=== PATIENT | male | born 1980 | race Caucasian/White ===

== ENCOUNTER 2016-11-21 11:55 | Emergency (ER) | payer SELFPAY ==
[~2016-11-21] VITALS: Ht 182.9 cm; Wt 122.7 kg
[~2016-11-21 11:55] MED LIST: MOTRIN 800800 MG/TAB PO; NO HOME MEDICATIONS; NORCO 325 MG-51 TAB PO; NORCO 325 MG-7.1 TAB PO; PHENERGAN 25 TA25 MG PO; antibiotic
[2016-11-21 11:56] VITALS: BP 138/80; PULSE 89; TEMP 97.7
== END 2016-11-21 12:52 | disposition home or self-care (01) ==
LOC: COL.ER 11:55
DX: R10.31 Right lower quadrant pain (principal)

== ENCOUNTER 2016-12-16 15:36 | Emergency (ER) | payer SELFPAY ==
[~2016-12-16] VITALS: Ht 182.9 cm; Wt 129.1 kg
[2016-12-16 15:39] VITALS: TEMP 97.8
[2016-12-16 16:48] LABS: BASO # 0.1 (0.0-0.2); BASO % 0.8 % (0.0-2.0); EOS # 0.1 (0.0-0.7); EOS % 1.4 % (0-4.0); GRAN # 4.7 (1.4-6.5); GRAN % 60.4 % (42.2-75.2); HEMATOCRIT 44.5 % (42.0-52.0); HEMOGLOBIN 15.2 g/dl (13.5-18.0); LYMPH # 2.3 (1.2-3.4); LYMPH % 29.7 % (20.0-51.0); MEAN CELL VOLUME 90 fl (80.0-100.0); MEAN CORPUSCULAR HEMOGLOBIN 31 pg (27.0-31.0); MEAN CORPUSCULAR HGB CONC 34 g/dl (33.0-37.0); MEAN PLATELET VOLUME 9.5 fl (7.4-10.4); MONO # 0.5 (0.1-0.6); MONO % 6.8 % (1.7-9.3); PLATELET COUNT 323 K/mm3 (130-400); RED BLOOD COUNT 4.93 M/mm3 (4.20-5.60); REDCELL DISTRIBUTION WIDTH-CV 12.5 % (11.5-14.5); WHITE BLOOD COUNT 7.8 K/mm3 (4.8-10.8)
[2016-12-16] MEDS ORDERED: ULTRAM 50MG TAB50 MG PO (17:27)
[2016-12-16 17:30] LABS: PH 6 (5-8); SQUAMOUS EPITHELIAL None Seen /hpf; URINE APPEARANCE Clear; URINE BACTERIA None Seen /hpf; URINE BILIRUBIN Negative (NEGATIVE); URINE BLOOD 1+ (NEGATIVE); URINE COLOR Straw; URINE GLUCOSE Negative (NEGATIVE); URINE KETONE Negative (NEGATIVE); URINE RBC 0-2 /hpf; URINE UROBILINOGEN Negative (NEGATIVE); URINE WBC 0-2 /hpf
[2016-12-16 18:37] LABS: CHLAMYDIA/TRACH by PCR Male NOT DETECTED; Neisseria Gon by PCR Male NOT DETECTED
[2016-12-16 19:17] VITALS: BP 110/86; PULSE 80
== END 2016-12-16 19:18 | disposition home or self-care (01) ==
LOC: COL.ER 15:36
PROVIDERS: Family Medicine
DX: R10.31 Right lower quadrant pain (principal); G89.29 Other chronic pain

== ENCOUNTER 2017-07-24 14:03 | Emergency (ER) | payer SELFPAY ==
[~2017-07-24] VITALS: Ht 182.9 cm; Wt 127.3 kg
[~2017-07-24 14:03] MED LIST changes: +ULTRAM 50MG TAB50 MG PO
[2017-07-24 14:09] VITALS: BP 120/76; TEMP 98.7
[2017-07-24 15:11] LABS: INFLUENZA A NEGATIVE; INFLUENZA B NEGATIVE
[2017-07-24 16:18] VITALS: PULSE 101
== END 2017-07-24 16:18 | disposition home or self-care (01) ==
LOC: COL.ER 14:03
PROVIDERS: Nurse Practitioner
DX: J02.9 Acute pharyngitis, unspecified (principal); B34.9 Viral infection, unspecified; Z90.89 Acquired absence of other organs; Z98.890 Other specified postprocedural states
CPT/HCPCS: J7030

== ENCOUNTER 2018-09-24 18:45 | Emergency (ER) | payer SELFPAY ==
[~2018-09-24] VITALS: Ht 180.3 cm; Wt 125.9 kg
[2018-09-24 18:54] VITALS: TEMP 98.2
[2018-09-24 20:13] LABS: COLLECTION METHOD CLEAN CATCH
[2018-09-24 20:19] LABS: MUCOUS Present /lpf; PH 6 (5-8); SQUAMOUS EPITHELIAL None Seen /hpf; URINE APPEARANCE Clear; URINE BACTERIA None Seen /hpf; URINE BILIRUBIN Negative (NEGATIVE); URINE BLOOD Negative (NEGATIVE); URINE COLOR Yellow; URINE GLUCOSE Negative (NEGATIVE); URINE KETONE Negative (NEGATIVE); URINE LEUKOCYTE ESTERASE Negative (NEGATIVE); URINE NITRATE Negative (NEGATIVE); URINE PROTEIN(semi-quant) Negative (NEGATIVE); URINE RBC 0-2 /hpf; URINE UROBILINOGEN Negative (NEGATIVE)
[2018-09-24] MEDS ORDERED: DOXYCYCLINE 10100 MG PO (20:45)
[2018-09-24 21:04] VITALS: BP 97/63; PULSE 76
== END 2018-09-24 21:06 | disposition home or self-care (01) ==
LOC: COL.ER 18:45
PROVIDERS: Emergency Medicine
DX: N34.2 Other urethritis (principal)
CPT/HCPCS: J0696

== ENCOUNTER 2018-10-11 19:38 | Emergency (ER) | payer SELFPAY ==
[~2018-10-11] VITALS: Ht 180.3 cm; Wt 125.0 kg
[~2018-10-11 19:38] MED LIST changes: +DOXYCYCLINE 10100 MG PO
[2018-10-11 19:44] VITALS: BP 121/73; TEMP 97.9
[2018-10-11] MEDS ORDERED: FLAGYL500 MG PO (20:24)
[2018-10-11 21:06] LABS: COLLECTION METHOD CLEAN CATCH
[2018-10-11 21:33] VITALS: PULSE 93
[2018-10-11 21:33] LABS: MUCOUS Present /lpf; PH 5 (5-8); SQUAMOUS EPITHELIAL None Seen /hpf; URINE APPEARANCE Hazy; URINE BACTERIA Many /hpf; URINE BILIRUBIN Negative (NEGATIVE); URINE BLOOD Negative (NEGATIVE); URINE COLOR Yellow; URINE GLUCOSE Negative (NEGATIVE); URINE KETONE Trace (NEGATIVE); URINE LEUKOCYTE ESTERASE Negative (NEGATIVE); URINE NITRATE Negative (NEGATIVE); URINE PROTEIN(semi-quant) 1+ (NEGATIVE); URINE WBC 0-2 /hpf
== END 2018-10-11 21:33 | disposition home or self-care (01) ==
LOC: COL.ER 19:38
PROVIDERS: Emergency Medicine
DX: R30.0 Dysuria (principal)
CPT/HCPCS: J0696

== ENCOUNTER 2018-10-18 16:28 | Emergency (ER) | payer SELFPAY ==
[~2018-10-18] VITALS: Ht 180.3 cm; Wt 125.0 kg
[~2018-10-18 16:28] MED LIST changes: +FLAGYL500 MG PO
[2018-10-18 16:40] VITALS: BP 105/66; PULSE 84; TEMP 97.9
[2018-10-19] MEDS ORDERED: PYRIDIUM200 M1 PO (17:10)
[2018-10-19] MEDS ORDERED: CIPRO 500MG TA500 MG PO (17:10)
== END 2018-10-18 18:19 | disposition left against medical advice (07) ==
LOC: COL.ER 16:28
DX: N48.29 Other inflammatory disorders of penis (principal)

== ENCOUNTER 2018-10-19 12:38 | Emergency (ER) | payer SELFPAY ==
[~2018-10-19] VITALS: Ht 180.3 cm; Wt 125.0 kg
[2018-10-19 12:41] VITALS: TEMP 98.6
[2018-10-19 16:07] LABS: COLLECTION METHOD CLEAN CATCH
[2018-10-19 16:18] LABS: PH 6 (5-8); SQUAMOUS EPITHELIAL 0-2 /hpf; URINE APPEARANCE Clear; URINE BACTERIA None Seen /hpf; URINE BILIRUBIN Negative (NEGATIVE); URINE BLOOD 1+ (NEGATIVE); URINE COLOR Yellow; URINE GLUCOSE Negative (NEGATIVE); URINE KETONE Negative (NEGATIVE); URINE LEUKOCYTE ESTERASE Trace (NEGATIVE); URINE NITRATE Negative (NEGATIVE); URINE PROTEIN(semi-quant) Negative (NEGATIVE); URINE RBC 0-2 /hpf; URINE UROBILINOGEN Negative (NEGATIVE)
[2018-10-19] MEDS ORDERED: CIPRO 500MG TA500 MG PO (17:10)
[2018-10-19] MEDS ORDERED: PYRIDIUM200 M1 PO (17:10)
[2018-10-19 17:41] VITALS: BP 112/72; PULSE 66
== END 2018-10-19 17:41 | disposition home or self-care (01) ==
LOC: COL.ER 12:38
PROVIDERS: Emergency Medicine
DX: R30.0 Dysuria (principal); Z90.89 Acquired absence of other organs

== ENCOUNTER → 2020-09-07 | Outpatient (CLI) | payer OTHER ==
[~2020-09-07] MED LIST changes: +CIPRO 500MG TA500 MG PO; +PYRIDIUM200 M1 PO
== END ==
LOC: COL.RAD 07:51
DX: R06.02 Shortness of breath (principal)

== ENCOUNTER 2021-03-22 14:11 | Emergency (ER) | payer SELFPAY ==
[~2021-03-22] VITALS: Ht 182.9 cm; Wt 136.4 kg
[2021-03-22 14:51] VITALS: TEMP 97.9
[2021-03-22] MEDS ORDERED: ANTIVERT 25MG25 MG PO (16:48)
[2021-03-22 16:58] VITALS: BP 112/87; PULSE 89
== END 2021-03-22 16:58 | disposition home or self-care (01) ==
LOC: COL.ER 14:11
DX: R42 Dizziness and giddiness (principal); R51.9 Headache, unspecified
CPT/HCPCS: J0780; J1200; J7120

== ENCOUNTER 2021-09-19 18:42 | Emergency (ER) | payer SELFPAY ==
[~2021-09-19 18:42] MED LIST changes: +ANTIVERT 25MG25 MG PO
[2021-09-19 18:49] VITALS: TEMP 97.5
[2021-09-19 19:08] LABS: BASO # 0.1 K/mm3 (0.0-0.2); BASO % 0.6 % (0.0-2.0); EOS # 0.1 K/mm3 (0.0-0.7); EOS % 1.1 % (0.0-4.0); GRAN # 6.8 K/mm3 (1.4-6.5); GRAN % 62.5 % (42.2-75.2); HEMATOCRIT 46.1 % (42.0-52.0); HEMOGLOBIN 15.8 g/dl (13.5-18.0); LYMPH # 2.9 K/mm3 (1.2-3.4); LYMPH % 26.4 % (20.0-51.0); MEAN CELL VOLUME 92 fl (80.0-100.0); MEAN CORPUSCULAR HEMOGLOBIN 32 pg (27-31); MEAN CORPUSCULAR HGB CONC 34 g/dl (33.0-37.0); MEAN PLATELET VOLUME 9.7 fl (7.4-10.4); MONO # 0.9 K/mm3 (0.1-0.6); MONO % 8.5 % (1.7-9.3); PLATELET COUNT 379 K/mm3 (130-400); REDCELL DISTRIBUTION WIDTH-CV 13.2 % (11.5-14.5)
[2021-09-19 19:24] LABS: ALANINE AMINOTRANSFERASE 61 U/L (0-55); ALBUMIN 4.6 gm/dL (3.5-5.0); ALKALINE PHOSPHATASE 74 U/L (40-150); ANION GAP 11 mmol/L (7-16); AST,SGOT 37 U/L (5-34); BILIRUBIN,TOTAL 0.5 mg/dL (0.2-1.2); BLOOD UREA NITROGEN 16 mg/dL (9-21); CALCIUM 10.3 mg/dL (8.4-10.2); CARBON DIOXIDE 24 mmol/L (22-29); CHLORIDE 102 mmol/L (98-107); CREATINE KINASE 182 U/L (30-200); CREATININE, serum 1.24 mg/dL (0.72-1.25); GLUCOSE 90 mg/dL (70-99); POTASSIUM 4.7 mmol/L (3.5-4.5); SODIUM 137 mmol/L (136-145); TOTAL PROTEIN 8.7 gm/dL (6.2-8.1)
[2021-09-19 19:38] LABS: TROPONIN-I < 0.010 ng/mL (0.00-0.033)
[2021-09-19] MEDS ORDERED: MEDROL 4MG DOSPA4 MG PO (22:05)
[2021-09-19 22:15] VITALS: BP 134/79; PULSE 70
== END 2021-09-19 22:15 | disposition home or self-care (01) ==
LOC: COL.ER 18:42
PROVIDERS: Emergency Medicine
DX: R07.81 Pleurodynia (principal); J45.909 Unspecified asthma, uncomplicated; Z20.822 Contact with and (suspected) exposure to COVID-19
CPT/HCPCS: J7030; J7512; Q9967

== ENCOUNTER 2021-09-23 18:09 | Emergency (ER) | payer SELFPAY ==
[~2021-09-23 18:09] MED LIST changes: +MEDROL 4MG DOSPA4 MG PO
[2021-09-23 18:15] VITALS: TEMP 98.4
[2021-09-23 18:32] LABS: BASO # 0.1 K/mm3 (0.0-0.2); BASO % 0.8 % (0.0-2.0); EOS # 0.1 K/mm3 (0.0-0.7); EOS % 1.1 % (0.0-4.0); GRAN # 7.4 K/mm3 (1.4-6.5); GRAN % 64.6 % (42.2-75.2); HEMATOCRIT 43.6 % (42.0-52.0); HEMOGLOBIN 15.1 g/dl (13.5-18.0); LYMPH % 26.1 % (20.0-51.0); MEAN CELL VOLUME 91 fl (80.0-100.0); MEAN CORPUSCULAR HEMOGLOBIN 32 pg (27-31); MEAN CORPUSCULAR HGB CONC 35 g/dl (33.0-37.0); MONO # 0.8 K/mm3 (0.1-0.6); MONO % 6.7 % (1.7-9.3); PLATELET COUNT 424 K/mm3 (130-400); REDCELL DISTRIBUTION WIDTH-CV 12.8 % (11.5-14.5)
[2021-09-23 18:49] LABS: ALANINE AMINOTRANSFERASE 45 U/L (0-55); ALBUMIN 4.4 gm/dL (3.5-5.0); ALKALINE PHOSPHATASE 70 U/L (40-150); ANION GAP 12 mmol/L (7-16); AST,SGOT 34 U/L (5-34); BILIRUBIN,TOTAL 0.3 mg/dL (0.2-1.2); BLOOD UREA NITROGEN 14 mg/dL (9-21); C-REACTIVE PROTEIN 0.75 mg/dL (0.00-0.50); CALCIUM 9.7 mg/dL (8.4-10.2); CARBON DIOXIDE 21 mmol/L (22-29); CHLORIDE 105 mmol/L (98-107); CREATININE, serum 1.01 mg/dL (0.72-1.25); GLUCOSE 110 mg/dL (70-99); POTASSIUM 4.1 mmol/L (3.5-4.5); SODIUM 138 mmol/L (136-145); TOTAL PROTEIN 8.5 gm/dL (6.2-8.1)
[2021-09-23 18:58] LABS: TROPONIN-I < 0.010 ng/mL (0.00-0.033)
[2021-09-23 21:34] VITALS: BP 130/88; PULSE 73
== END 2021-09-23 21:34 | disposition home or self-care (01) ==
LOC: COL.ER 18:09
PROVIDERS: Nurse Practitioner
DX: R07.89 Other chest pain (principal)
CPT/HCPCS: J7512